=== PATIENT | female | born 1980 | race Caucasian/White ===

== ENCOUNTER → 2017-11-13 | Outpatient (CLI) | payer OTHER ==
[~2017-11-13] MED LIST: IBUP200 PO; MEDR150I IM
[2017-11-15 12:23] LABS: HPV Genotype 16 Detected (NOTDET); HPV Genotype 18 Not Detected (NOTDET)
[2017-12-01 10:14] LABS: HPV High Risk Other Not Detected (NOTDET)
== END ==
LOC: LAB 16:01
PROVIDERS: Registered Nurse Community Health
DX: Z12.4 Encounter for screening for malignant neoplasm of cervix (principal)
CPT/HCPCS: 87624; G0123

== ENCOUNTER → 2017-12-20 | Outpatient (CLI) | payer BC, OTHER | LOC: PLD 10:55 → LAB SHORT 10:55 | DX: Z09 Encounter for follow-up examination after completed treatment for conditions other than malignant neoplasm (principal); Z86.19 Personal history of other infectious and parasitic diseases | CPT/HCPCS: 88305 ==

== ENCOUNTER → 2018-12-23 | Outpatient (CLI) | payer BC, OTHER ==
[2018-12-25 13:07] LABS: HPV 16 Negative (Negative); HPV 18 Negative (Negative); HPV OTHER HR TYPES Negative (Negative)
== END ==
LOC: LAB SHORT 18:33 → LAB 18:33
PROVIDERS: Registered Nurse Community Health
DX: Z12.4 Encounter for screening for malignant neoplasm of cervix (principal); Z01.42 Encounter for cervical smear to confirm findings of recent normal smear following initial abnormal smear
CPT/HCPCS: 87624; G0123

== ENCOUNTER → 2019-04-08 | Outpatient (CLI) | payer BC, OTHER ==
[2019-04-12 07:07] LABS: HSV-1 DNA Negative (Negative); HSV-2 DNA Positive (Negative)
== END ==
LOC: LAB SHORT 17:10 → LAB 17:10
PROVIDERS: Physician Assistant
DX: L08.9 Local infection of the skin and subcutaneous tissue, unspecified (principal)
CPT/HCPCS: 87529; 87798

== ENCOUNTER → 2022-06-01 | Outpatient (CLI) | payer OTHER, BC ==
[2022-06-02 14:11] LABS: HPV 16 Negative (Negative); HPV 18 Negative (Negative); HPV OTHER HR TYPES Negative (Negative)
== END | disposition home or self-care (01) ==
LOC: LAB SHORT 12:41
PROVIDERS: Registered Nurse Community Health
DX: Z01.42 Encounter for cervical smear to confirm findings of recent normal smear following initial abnormal smear (principal)
CPT/HCPCS: 87624; G0123

== ENCOUNTER → 2022-08-05 | Outpatient (CLI) | payer BC, OTHER ==
[2022-08-05 07:06] LABS: Free Thyroxine 1.02 ng/dL (0.70-1.60); Thyroid Stimulating Hormone 1.63 uIU/mL (0.360-4.800); Triiodothyronine, Free 2.97 pg/mL (2.18-3.98)
== END | disposition home or self-care (01) ==
LOC: LAB SHORT 06:11
PROVIDERS: Nurse Practitioner
DX: E02 Subclinical iodine-deficiency hypothyroidism (principal); E78.49 Other hyperlipidemia; M16.0 Bilateral primary osteoarthritis of hip; R53.83 Other fatigue
CPT/HCPCS: 84439; 84443; 84481

== ENCOUNTER → 2024-08-29 | Outpatient (CLI) | payer BC, OTHER ==
[2024-08-29 05:55] LABS: Alanine Aminotransfer (ALT/SGP 82 U/L (12-78); Albumin, Blood 4.3 g/dL (3.4-5.0); Albumin/Globulin Ratio 1.2 (0.8-1.8); Alk Phos 69 U/L (50-136); Anion Gap 12 mmol/L (3-11); Aspartate Aminotrans (AST/SGOT 42 U/L (12-37); Bilirubin, Total 0.7 mg/dL (0.1-1.0); Blood Urea Nitrogen 12 mg/dL (8-24); Bun/Creatinine Ratio 13.3 (12.0-20.0); CO2, Blood 21 mmol/L (21-32); Calcium, Blood 9.3 mg/dL (8.5-10.1); Chloride, Blood 111 mmol/L (98-108); Cholesterol 241 mg/dL (50-200); Free Thyroxine 1.18 ng/dL (0.70-1.60); Globulin, Blood 3.5 g/dL (2.2-4.0); Glomerular Filtration Rate 81 (60-); Glucose, Blood 90 mg/dL (70-99); HDL Cholesterol 60 mg/dL (>39); LDL/HDL RATIO 2.7; Low Density Lipoprotein Chol 162 mg/dL (0-110); Potassium, Blood 3.9 mmol/L (3.5-5.5); Sodium, Blood 140 mmol/L (136-145); Total Protein, Blood 7.8 g/dL (6.4-8.2); Triglycerides 93 mg/dL (30-160); Very Low Density Lipoprot Chol 18 mg/dL (6-32)
== END ==
LOC: LAB 05:20 → LAB SHORT 05:20
PROVIDERS: Physician Assistant
DX: E03.8 Other specified hypothyroidism (principal); E78.49 Other hyperlipidemia; F32.A Depression, unspecified; F41.9 Anxiety disorder, unspecified
CPT/HCPCS: 80053; 80061; 84439; 84443; 84481